=== PATIENT | female | born 1970 | race Two or more races ===

== ENCOUNTER 2018-08-21 10:48 | Emergency (ER) | payer OTHER ==
[~2018-08-21] VITALS: Ht 157.5 cm; Wt 73.0 kg
[~2018-08-21 10:48] MED LIST: LEVO750T21 PO; METR500T PO; PIPE3.376 IV
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
[2018-08-21] MEDS ORDERED: HYDROCODONE/APAP 5/325MG 1 EACH TABLET ONE (11:22)
[2018-08-21] MEDS ORDERED: HYDROCODONE/APAP 5/325MG 1 EACH TABLET PO ONE (11:30)
--- NOTE | 2018-08-21 11:46 | NUR ---
URINE SAMPLE SENT TO LAB
--- NOTE | 2018-08-21 12:20 | NUR ---
WHEELED OUT VIA WHEELCHAIR FOR CT SCAN
--- NOTE | 2018-08-21 13:04 | NUR ---
PT BACK FROM CT SCAN
--- NOTE | 2018-08-21 13:26 | NUR ---
PT REQUESTED A COPY OF SCANS. INFORMED RADIOLOGY DEPT.
--- NOTE | 2018-08-21 13:29 | NUR ---
PROVIDED CD COPY OF CT SCAN IMAGES.
--- NOTE | 2018-08-21 13:30 | NUR ---
Patient discharged to home in stable condition. Written and verbal after care instructions given. Patient verbalizes understanding of instruction.
[2018-08-21 13:33] VITALS: BP 108/72
== END 2018-08-21 13:35 | disposition home or self-care (01) ==
LOC: ER 10:53
DX: S16.1XXA Strain of muscle, fascia and tendon at neck level, initial encounter (principal); M54.5 Low back pain; Z98.890 Other specified postprocedural states; Z79.899 Other long term (current) drug therapy; V49.69XA Unspecified car occupant injured in collision with other motor vehicles in traffic accident, initial encounter; Y93.89 Activity, other specified; Y92.413 State road as the place of occurrence of the external cause; Y99.8 Other external cause status
CPT/HCPCS: 72040-TC; 72100-TC; 84703-TC

== ENCOUNTER 2021-06-29 20:28 | Emergency (ER) | payer OTHER ==
[~2021-06-29] VITALS: Ht 157.5 cm; Wt 72.6 kg
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
[2021-06-29] MEDS ORDERED: KETOROLAC TROMETHAMINE INJ 30 MG/ML VIAL ONE ×2 (20:41→20:49)
[2021-06-29] MEDS ORDERED: CYCLOBENZAPRINE 10 MG TABLET ONE ×2 (20:41→20:49)
--- NOTE | 2021-06-29 20:45 | NUR ---
TAKEN TO CT
--- NOTE | 2021-06-29 20:45 | NUR ---
PATIENT GOING TO XRAY
--- NOTE | 2021-06-29 20:56 | NUR ---
PATIENT BACK FROM CT.
[2021-06-29] MEDS ORDERED: KETOROLAC TROMETHAMINE INJ 30 MG/ML VIAL IM ONE (21:00)
[2021-06-29] MEDS ORDERED: CYCLOBENZAPRINE 10 MG TABLET PO ONE (21:00)
[2021-06-29 21:30] VITALS: BP 124/74
[2021-06-29] MEDS ORDERED: CYCL5TAB PO (21:34)
[2021-06-29] MEDS ORDERED: IBUP-1957 PO (21:34)
--- NOTE | 2021-06-29 22:08 | NUR ---
Patient discharged to home in stable condition. Rx and Written and verbal after care instructions given. Patient verbalizes understanding of instruction.
== END 2021-06-29 22:10 | disposition home or self-care (01) ==
LOC: ER 20:38
DX: M48.02 Spinal stenosis, cervical region (principal); M25.461 Effusion, right knee; Z79.1 Long term (current) use of non-steroidal anti-inflammatories (NSAID); Z79.899 Other long term (current) drug therapy; V89.2XXA Person injured in unspecified motor-vehicle accident, traffic, initial encounter; Y93.89 Activity, other specified; Y92.410 Unspecified street and highway as the place of occurrence of the external cause; Y99.8 Other external cause status
CPT/HCPCS: 72125; 73564; 96372; 99284; J1885